=== PATIENT | female | born 1975 | race Caucasian/White ===

== ENCOUNTER 2021-10-31 08:59 | Emergency (ER) | payer SELFPAY ==
[2021-10-31 09:13] VITALS: BP 124/93; PULSE 102; RESP 20; TEMP 36.6; O2SAT 95; BMI 22.8
--- NOTE | 2021-10-31 09:31 | ED_ITS ---
HPI - General Adult General Time Seen by Provider: 09:32 Date Seen: 10/31/21 Chief complaint: Abdominal Pain Stated complaint: lower abdominal pain/back pain Time Seen by Provider: 10/31/21 09:01 Source: patient History of Present Illness HPI narrative: Jay is a 46 year old female presents emerged department with left lower quadrant abdominal pain. Patient states she has had intermittently over the last 3 days, pain originates in her left lower back to her left flank and left groin area, it is pulsating in nature, 5/10. She did have 2 episodes of vomiting last night and associated nausea this morning, she did not eat much. She denies any fevers, chills, myalgias arthralgias. She feels like she has increased urinary frequency, she thought she had some blood in her urine, she denies any burning sensation, she has had urinary tract infections in the past. She also was told that she had some kidney stones. She has not taken anything for the pain. She denies any chest pain or shortness of breath. She had been doing relatively well prior to the last 3 days. Patient states she smokes 1/2 pack per day, usually drinks 3 or 4 whiskey after work daily. No history of any withdrawals in the past. Related Data Previous Rx's Medication Instructions Recorded cefdinir 300 mg capsule 300 mg PO BID 7 days #14 caps 10/31/21 Allergies Allergy/AdvReac Type Severity Reaction Status Date / Time amoxicillin Allergy Verified 10/31/21 11:53 Penicillins Allergy Verified 10/31/21 11:53 Review of Systems Status of ROS: Reports: 10 or more systems reviewed and unremarkable except as noted in History and below [facility] Medical History (Updated 10/31/21 @ 14:24 by Javon Tee MD) No significant past medical history Surgical History (Updated 10/31/21 @ 09:52 by Melony Mcintosh RN) History of cholecystectomy History of shoulder surgery Social History Smoking Status: Current every day smoker What tobacco products do you use: cigarettes Smoking packs per day: 1 Smoking cigarettes per day: 20.0 Years smoked: 20 Smoking pack-years: 20.00 Do you use any of these nicotine containing products: None Second hand tobacco smoke exposure: Yes How often do you have a drink containing alcohol: 4 or more times a week How many standard drinks containing alcohol do you have on a typical day: 3 or 4 How often do you have six or more drinks on one occasion: Monthly AUDIT-C Alcohol total score: 7 Non-prescribed substance use: denies use service: No Exam Narrative: Exam Narrative: General: No obvious distress sitting comfortably HEENT: Pupils equal round reactive to light, extraocular muscles intact Neck: Supple full range of motion. Heart: S1-S2: Normal sinus rhythm Lungs: Mild inspiratory and expiratory wheezes throughout Abdomen: Tender to palpation the left lower quadrant area Muscle skeletal: Left CVA tenderness Neuro; alert awake and oriented x3, gait within normal limits Const: Vital Signs, click to edit/add: Vital Signs - 24 hr 10/31/21 09:13 10/31/21 10:30 10/31/21 11:30 Temperature 97.8 F Pulse Rate [Pulse Oximeter] 102 H 84 78 Respiratory Rate 20 Blood Pressure [Ri ght Upper Arm] 124/93 H 116/86 Pulse Oximetry 95 96 96 Oxygen Delivery Me thod Room Air Room Air Room Air 10/31/21 11:00 10/31/21 14:02 Temperature Pulse Rate [Pulse Oximeter] 82 76 Respiratory Rate 16 Blood Pressure [Ri ght Upper Arm] 121/86 133/91 H Pulse Oximetry 94 98 Oxygen Delivery Me thod Room Air Course Course Hospital Course: 9:15 AM: AIDET performed. vitals show mild tachycardia. Workup will include IV peripheral, 30 mg IV Toradol, for her pain, will obtain urinalysis, urine test, CBC, CRP, CMP and lipase, suspect UTI versus urolithiasis. Differential diagnosis include appendicitis, aortic aneurysm, mesentery ischemia, bowel perforation ectopic volvulus and bowel obstruction. Other considerations are IBD cholecystitis pancreatitis hepatitis gastritis GERD diverticulitis PUD pyelonephritis UTI renal colic stone PID, cervicitis dysfunctional uterine bleeding ovarian cyst torsion. Reevaluation(s) Reevaluation #1: Patient was updated on her imaging and urinalysis results, CBC showed mildly low platelet count of 107, metabolic panel showed potassium 2.7, elevated LFTs, this likely secondary to her alcohol use, lipase 409, urinalysis showed 5-10 white blood cells, greater than 5-10 RBC's, positive nitrates, 3+ leukocyte esterase. CT showed abnormal thickening and enhancement within the distal ureter/bladder at the left UVJ. Primary differential includes a recently passed stone as there is a 5 mm stone within the dependent portion of the contralateral aspect of the bladder. Additional consideration is infection or soft tissue mass. Consider cystoscopy if clinically indicated. No hydronephrosis. Severe hepatic steatosis. No biliary duct dilation. This was read by Dr. Quintin GEORGE. patient is feeling better after above care given, likely repeat potassium obtain EKG and discharge with Omnicef, she was given a dose of 1 g IV Rocephin. Time: 12:39 Reevaluation #2: EKG showed a normal sinus rhythm, BPM 79, no ectopy or acute ST changes. Per ED provider. She was given supplemental potassium and improved to 3.5, magnesium mild low at 1.4, pain has been controlled, plan to discharge treat as an outpatient, she was given Omnicef 300 mg b.i.d. over the next 7 days sent to her pharmacy, written instructions given. She should follow up with her primary care provider over the next 7-10 days, return precautions given. Time: 14:27 Vital Signs Vital signs: Initial Vital Signs Temperature 97.8 F 10/31/21 09:13 Temperature Source Temporal Artery Scan 10/31/21 09:13 Pulse Rate 102 H 10/31/21 09:13 Pulse Rhythm 10/31/21 09:13 Respiratory Rate 20 10/31/21 09:13 Blood Pressure 124/93 H 10/31/21 09:13 Blood Pressure Mean 103 10/31/21 09:13 Blood Pressure Position Supine 10/31/21 09:13 Pulse Oximetry 95 10/31/21 09:13 Oxygen Delivery Method 10/31/21 09:13 Vital Signs Temperature 97.8 F 10/31/21 09:13 Pulse Rate 102 H 10/31/21 09:13 Respiratory Rate 20 10/31/21 09:13 Blood Pressure 124/93 H 10/31/21 09:13 Pulse Oximetry 95 10/31/21 09:13 Oxygen Delivery Method 10/31/21 09:13 Temperature 97.8 F 10/31/21 09:13 Pulse Rate 76 10/31/21 14:02 Respiratory Rate 16 10/31/21 14:02 Blood Pressure 133/91 H 10/31/21 14:02 Pulse Oximetry 98 10/31/21 14:02 Oxygen Delivery Method 10/31/21 14:02 Medical Decision Making Lab Data Labs: Lab Results 10/31/21 10/31/21 10/31/21 Range/Units 09:29 09:29 09:45 WBC 5.63 (4.50-11.00) K/uL RBC 3.49 L (4.00-5.20) m/uL Hgb 14.1 (12.0-16.0) gm/dL Hct 40.1 (33.0-51.0) % MCV 115 H (80-100) fL MCH 40 H (26-34) pg MCHC 35 (32-36) gm/dL RDW Coeff of Nicolas 12.9 (11.5-15.5) % Plt Count 107 L (140-440) K/uL Neut % (Auto) 68.1 (42.0-72.0) % Lymph % (Auto) 21.3 (20-44) % [place] % (Auto) 9.1 (0.0-11.0) % Eos % (Auto) 0.9 (0.0-7.0) % Baso % (Auto) 0.4 (0.0-3.0) % Neut # (Auto) 3.84 (1.7-7.0) K/uL Lymph # (Auto) 1.20 (0.90-2.90) K/uL [place] # (Auto) 0.50 (0.00-0.90) K/UL Eos # (Auto) 0.05 (0.00-0.50) K/uL Baso # (Auto) 0.02 (0.00-0.30) K/uL Abs Immat Gran (auto) 0.01 (0.00-0.30) K/uL Sodium (135-149) mmol/L Potassium (3.6-5.1) mmol/L Chloride (96-114) mmol/L Carbon Dioxide (20-32) mmol/L BUN (5-24) mg/dL Creatinine (0.5-1.5) mg/dL Estimated Creat Clear Estimated GFR ml/min Glucose (60-115) mg/dL Lactate (0.5-1.9) mmol/L Calcium (8.4-10.6) mg/dL Magnesium (1.5-2.6) mg/dL Total Bilirubin (0.1-1.5) mg/dL AST (12-35) U/L ALT (4-35) U/L Alkaline Phosphatase (40-150) U/L C-Reactive Protein (0.5-1.0) mg/dL Total Protein (6.0-8.3) g/dL Albumin (3.3-5.0) g/dL Lipase (23-300) U/L Urine Color Yellow (Yellow) Urine Appearance Cloudy A (Clear) Urine pH 6.5 (5.0-8.5) Ur Specific [place] 1.010 (1.000-1.030) Urine Protein 2+ A (Negative) Urine Glucose (UA) Negative (Negative) Urine Ketones Trace A (Negative) Urine Blood 2+ A (Negative) Urine Nitrite Positive A (Negative) Urine Bilirubin 1+ A (Negative) Urine Urobilinogen 1.0 (0.2-1.0) Ur Leukocyte Esterase 3+ A (Negative) Urine RBC 10-25 A (0-2) Urine WBC 5-10 A (0-5) Ur Squamous Epith Cells Moderate A (None-Few) Urine Bacteria Moderate A (None) Urine HCG, Qual Negative (Negative) 10/31/21 10/31/21 10/31/21 Range/Units 09:45 09:48 11:25 WBC (4.50-11.00) K/uL RBC (4.00-5.20) m/uL Hgb (12.0-16.0) gm/dL Hct (33.0-51.0) % MCV (80-100) fL MCH (26-34) pg MCHC (32-36) gm/dL RDW Coeff of Nicolas (11.5-15.5) % Plt Count (140-440) K/uL Neut % (Auto) (42.0-72.0) % Lymph % (Auto) (20-44) % [place] % (Auto) (0.0-11.0) % Eos % (Auto) (0.0-7.0) % Baso % (Auto) (0.0-3.0) % Neut # (Auto) (1.7-7.0) K/uL Lymph # (Auto) (0.90-2.90) K/uL [place] # (Auto) (0.00-0.90) K/UL Eos # (Auto) (0.00-0.50) K/uL Baso # (Auto) (0.00-0.30) K/uL Abs Immat Gran (auto) (0.00-0.30) K/uL Sodium 135 (135-149) mmol/L Potassium 2.7 L* (3.6-5.1) mmol/L Chloride 96 (96-114) mmol/L Carbon Dioxide 32 (20-32) mmol/L BUN 7 (5-24) mg/dL Creatinine 0.5 (0.5-1.5) mg/dL Estimated Creat Clear 143.33 Estimated GFR 118 ml/min Glucose 132 H (60-115) mg/dL Lactate 1.2 (0.5-1.9) mmol/L Calcium 8.9 (8.4-10.6) mg/dL Magnesium 1.4 L (1.5-2.6) mg/dL Total Bilirubin 2.2 H (0.1-1.5) mg/dL AST 168 H (12-35) U/L ALT 48 H (4-35) U/L Alkaline Phosphatase 169 H (40-150) U/L C-Reactive Protein 0.6 (0.5-1.0) mg/dL Total Protein 6.9 (6.0-8.3) g/dL Albumin 3.6 (3.3-5.0) g/dL Lipase 409 H (23-300) U/L Urine Color (Yellow) Urine Appearance (Clear) Urine pH (5.0-8.5) Ur Specific [place] (1.000-1.030) Urine Protein (Negative) Urine Glucose (UA) (Negative) Urine Ketones (Negative) Urine Blood (Negative) Urine Nitrite (Negative) Urine Bilirubin (Negative) Urine Urobilinogen (0.2-1.0) Ur Leukocyte Esterase (Negative) Urine RBC (0-2) Urine WBC (0-5) Ur Squamous Epith Cells (None-Few) Urine Bacteria (None) Urine HCG, Qual (Negative) 10/31/21 Range/Units 13:30 WBC (4.50-11.00) K/uL RBC (4.00-5.20) m/uL Hgb (12.0-16.0) gm/dL Hct (33.0-51.0) % MCV (80-100) fL MCH (26-34) pg MCHC (32-36) gm/dL RDW Coeff of Nicolas (11.5-15.5) % Plt Count (140-440) K/uL Neut % (Auto) (42.0-72.0) % Lymph % (Auto) (20-44) % [place] % (Auto) (0.0-11.0) % Eos % (Auto) (0.0-7.0) % Baso % (Auto) (0.0-3.0) % Neut # (Auto) (1.7-7.0) K/uL Lymph # (Auto) (0.90-2.90) K/uL [place] # (Auto) (0.00-0.90) K/UL Eos # (Auto) (0.00-0.50) K/uL Baso # (Auto) (0.00-0.30) K/uL Abs Immat Gran (auto) (0.00-0.30) K/uL Sodium (135-149) mmol/L Potassium 3.5 L (3.6-5.1) mmol/L Chloride (96-114) mmol/L Carbon Dioxide (20-32) mmol/L BUN (5-24) mg/dL Creatinine (0.5-1.5) mg/dL Estimated Creat Clear Estimated GFR ml/min Glucose (60-115) mg/dL Lactate (0.5-1.9) mmol/L Calcium (8.4-10.6) mg/dL Magnesium (1.5-2.6) mg/dL Total Bilirubin (0.1-1.5) mg/dL AST (12-35) U/L ALT (4-35) U/L Alkaline Phosphatase (40-150) U/L C-Reactive Protein (0.5-1.0) mg/dL Total Protein (6.0-8.3) g/dL Albumin (3.3-5.0) g/dL Lipase (23-300) U/L Urine Color (Yellow) Urine Appearance (Clear) Urine pH (5.0-8.5) Ur Specific [place] (1.000-1.030) Urine Protein (Negative) Urine Glucose (UA) (Negative) Urine Ketones (Negative) Urine Blood (Negative) Urine Nitrite (Negative) Urine Bilirubin (Negative) Urine Urobilinogen (0.2-1.0) Ur Leukocyte Esterase (Negative) Urine RBC (0-2) Urine WBC (0-5) Ur Squamous Epith Cells (None-Few) Urine Bacteria (None) Urine HCG, Qual (Negative) Discharge Plan Discharge Clinical Impression: Alcohol use, Hepatic steatosis, Urolithiasis, Hypokalemia Patient Disposition: Home, Self-Care Condition: Improved Instructions: Renal Colic (ED), Potassium Content of Foods List (ED), Hypokalemia (ED) Activity Level: Activity as Tolerated Prescriptions: New cefdinir 300 mg capsule 300 mg PO BID 7 Days Qty: 14 0RF Follow Up/Referrals: Branden Michaud PA-C [Primary Care Provider] - Stand Alone Forms: [email or web address] Info Instructions
[2021-10-31 09:42] LABS: Appearance Urine Cloudy (Clear); Bilirubin Urine 1+ (Negative); Blood Urine 2+ (Negative); Color Urine Yellow (Yellow); Glucose Urine Negative (Negative); Ketones Urine Trace (Negative); Leukocyte Esterase Urine 3+ (Negative); Nitrite Urine Positive (Negative); Protein Urine 2+ (Negative); pH Urine 6.5 (5.0-8.5)
[2021-10-31] MEDS: 0.9 % SODIUM CHLORIDE 1000 ml 1,000 ML IV (09:49)
[2021-10-31] MEDS: KETOROLAC 30 MG/ML inj IVP (09:49)
[2021-10-31 09:57] LABS: Basophils Absolute Auto 0.02 K/uL (0.00-0.30); Basophils Percent Auto 0.4 % (0.0-3.0); Eosinophils Absolute Auto 0.05 K/uL (0.00-0.50); Eosinophils Percent Auto 0.9 % (0.0-7.0); Hematocrit 40.1 % (33.0-51.0); Hemoglobin* 14.1 gm/dL (12.0-16.0); Immature Granulocytes Abs Auto 0.01 K/uL (0.00-0.30); Lymphocytes Percent Auto 21.3 % (20-44); Mean Corpuscular HGB Conc 35 gm/dL (32-36); Mean Corpuscular Hemoglobin 40 pg (26-34); Mean Corpuscular Volume 115 fL (80-100); Monocytes Percent Auto 9.1 % (0.0-11.0); Neutrophils Absolute Auto 3.84 K/uL (1.7-7.0); Neutrophils Percent Auto 68.1 % (42.0-72.0); Platelet Count* 107 K/uL (140-440); RDW Coefficient of Variation % 12.9 % (11.5-15.5); Red Blood Count 3.49 m/uL (4.00-5.20); White Blood Count* 5.63 K/uL (4.50-11.00)
[2021-10-31 09:59] LABS: Slide Review Reflex No
[2021-10-31 10:02] LABS: Bacteria Urine Moderate; Squamous Epithelial Cell Urine Moderate (None-Few)
[2021-10-31] MEDS: HYDROmorphone 0.5 mg/0.5 ml inj IVP (10:11)
[2021-10-31 10:14] LABS: Albumin* 3.6 g/dL (3.3-5.0); Chloride* 96 mmol/L (96-114)
[2021-10-31 10:15] LABS: Sodium* 135 mmol/L (135-149)
[2021-10-31 10:17] LABS: Bilirubin Total* 2.2 mg/dL (0.1-1.5); Creatinine* 0.5 mg/dL (0.5-1.5); Est. Creatinine Clearance* 143.33; Estimated Glomerular Filt Rate 118 ml/min
[2021-10-31 10:18] LABS: Alanine Aminotransferase* 48 U/L (4-35); Alkaline Phosphatase* 169 U/L (40-150); Aspartate Amino Transferase* 168 U/L (12-35); Blood Urea Nitrogen* 7 mg/dL (5-24); Calcium* 8.9 mg/dL (8.4-10.6); Carbon Dioxide* 32 mmol/L (20-32); Glucose* 132 mg/dL (60-115); Lipase* 409 U/L (23-300); Total Protein* 6.9 g/dL (6.0-8.3)
[2021-10-31 10:19] LABS: Ur HCG Qualitative* Negative (Negative)
[2021-10-31 10:21] LABS: C Reactive Protein* 0.6 mg/dL (0.5-1.0)
[2021-10-31 10:30] VITALS: BP 116/86; PULSE 84; O2SAT 96
[2021-10-31 10:32] LABS: Potassium* 2.7 mmol/L (3.6-5.1)
--- NOTE | 2021-10-31 10:54 | CRLHL7_ITS ---
For Patients: As a result of the Century Cures Act, medical imaging exams and procedure reports are released immediately into your electronic medical record. You may view this report before your referring provider. If you have questions, please contact your health care provider. INDICATION: LEFT FLANK PAIN, PYELONEPHRITIS VS OBSTRUCTING STONE. ABNORMAL LFT, BILI TECHNIQUE: CT abdomen and pelvis with 74CC ISOVUE-370 IV contrast. COMPARISON: None. FINDINGS: The liver is normal in size. Hepatic parenchyma attenuation is severely decreased. Gallbladder surgically absent. No biliary duct dilation. The portal vein pain. The spleen, adrenal glands and pancreas are within normal limits. The kidneys enhance symmetrically and modestly. There is a right-sided renal cyst measuring 1.4 cm additional subcentimeter hypodensities are too small characterize. No hydronephrosis. No evidence of nephrolithiasis. Abnormal thickening and enhancement within the distal ureter/bladder at the left ureterovesicular junction (series 2, image 133 measuring 1.1 x 2.8 by 0.8 cm). Within the dependent portion of the bladder on the right there is a 5 mm stone. Mild bladder wall thickening which may relate to degree of decompression. No bowel obstruction. Unremarkable appendix. No significant free fluid and no free air. Pelvic organs are unremarkable. Linear atelectasis of the left lung base. IMPRESSION: 1. Abnormal thickening and enhancement within the distal ureter/bladder at the left ureterovesicular junction. Primary differential includes a recently passed stone as there is a 5 mm stone within the dependent portion of the contralateral aspect of the bladder. Additional consideration is infection or soft tissue mass. Consider cystoscopy if clinically indicated. No hydroureteronephrosis. 2. Severe hepatic steatosis. No biliary duct dilation. Please note that all CT scans at this facility use dose modulation, iterative reconstruction, and/or weight-based dosing when appropriate to reduce radiation dose to as low as reasonably achievable. Dictated by Baljinder Ribeiro MD @ 10/31/2021 12:19:41 PM (Electronically Signed)
[2021-10-31 11:00] VITALS: BP 121/86; PULSE 82; O2SAT 94
[2021-10-31] MEDS: POTASSIUM CHLORIDE 10 MEQ CAPSULE ER 40 MEQ PO (11:08)
[2021-10-31 11:30] VITALS: PULSE 78; O2SAT 96
[2021-10-31 11:48] LABS: Lactate* 1.2 mmol/L (0.5-1.9)
[2021-10-31] MEDS: cefTRIAXone 1 GM in 0.9 % SODIUM CHLORIDE Mini-bag 100 ML IVPB (11:58)
[2021-10-31 13:55] LABS: Potassium* 3.5 mmol/L (3.6-5.1)
[2021-10-31 14:02] VITALS: BP 133/91; PULSE 76; RESP 16; O2SAT 98
[2021-10-31 15:19] LABS: Magnesium* 1.4 mg/dL (1.5-2.6)
== END 2021-10-31 14:34 | disposition home or self-care (01) ==
PROVIDERS: Emergency Provider Student in an Organized Health Care Education/Training Program; PCP Physician Assistant Medical
DX: F10.10 Alcohol abuse, uncomplicated (principal); K76.0 Fatty (change of) liver, not elsewhere classified; N20.9 Urinary calculus, unspecified; E87.6 Hypokalemia
CPT/HCPCS: 36415; 74177; 80053; 81003; 81015; 81025; 83605; 83690; 83735; 84132; 85025; 86140; 87040; 87086; 87186; 93005; 96365; 96375; 99283; 99284; 99285; A9270; J0696; J1170; J1885; J7030; Q9967

== ENCOUNTER 2022-02-28 12:42 | Emergency (ER) | payer SELFPAY ==
[2022-02-28] VITALS (10 sets, daily range): BP systolic 117–136; BP diastolic 85–98; PULSE 77–117; RESP 16–23; TEMP 36.7; O2SAT 89–98; BMI 21.3
[2022-02-28 14:36] LABS: Appearance Urine Slightly Cloudy (Clear); Bilirubin Urine 1+ (Negative); Blood Urine Negative (Negative); Color Urine Orange (Yellow); Glucose Urine Negative (Negative); Ketones Urine Negative (Negative); Leukocyte Esterase Urine Negative (Negative); Nitrite Urine Negative (Negative); Protein Urine Trace (Negative)
--- NOTE | 2022-02-28 14:49 | CRLHL7_ITS ---
For Patients: As a result of the Century Cures Act, medical imaging exams and procedure reports are released immediately into your electronic medical record. You may view this report before your referring provider. If you have questions, please contact your health care provider. INDICATION: Abdominal and left flank pain. TECHNIQUE: CT abdomen and pelvis without contrast. COMPARISON: October 31, 2021. FINDINGS: Lower chest: Scattered dependent atelectasis. Liver: Hepatic steatosis. Gallbladder and bile ducts: Cholecystectomy. Pancreas: Unremarkable. No mass or inflammation. Spleen: Normal in size. No masses. Adrenal glands: Normal in size. No nodules. Kidneys: Normal in size. No suspicious masses, stones, or hydronephrosis. Right simple renal cyst. GI tract: Unremarkable. Normal in caliber. No sign of mass or inflammation. Normal appendix. Vasculature: Abdominal aorta is normal in caliber. Lymph nodes: No lymphadenopathy. Peritoneum/Abdominal Wall: Unremarkable. No sign of mass or infiltration. No free air or significant free fluid. Pelvis: Intrauterine device. Bones: Unremarkable for age. IMPRESSION: No acute intra-abdominal/pelvic abnormality, including obstructive uropathy has question. Hepatic steatosis. Please note that all CT scans at this facility use dose modulation, iterative reconstruction, and/or weight-based dosing when appropriate to reduce radiation dose to as low as reasonably achievable. Dictated by Javon Segundo MD @ 02/28/2022 3:59:25 PM (Electronically Signed)
--- NOTE | 2022-02-28 14:50 | ED.GENADULT ---
HPI - General Adult General Chief complaint: Flank Pain Stated complaint: Back pain, suspected kidney stone Time Seen by Provider: 02/28/22 14:33 History of Present Illness HPI narrative: This 46-year-old female comes in reporting left flank pain radiating into her left abdomen. This pain began yesterday. She states that she does have a history of kidney stone and this seems similar but worse. She has some nausea. She does report some discolored urine. She has not had any fevers. Related Data Previous Rx's Medication Instructions Recorded cefdinir 300 mg capsule 300 mg PO BID 7 days #14 caps 10/31/21 ketorolac 10 mg tablet 10 mg PO Q8H 5 days #15 tabs 02/28/22 Allergies Allergy/AdvReac Type Severity Reaction Status Date / Time amoxicillin Allergy Verified 02/28/22 13:21 Penicillins Allergy Verified 02/28/22 13:21 Review of Systems Status of ROS: Reports: 10 or more systems reviewed and unremarkable except as noted in History and below Narrative: Constitutional: No fevers, no weight gain or loss. Eyes: No discharge. No vision changes. HENT: No congestion, no sore throat, no ear pain. Cardiovascular: No chest pain, no palpitations. Respiratory: No shortness of breath, no wheezes, no cough. Gastrointestinal: No diarrhea. Left flank pain extending into the left abdomen. Genitourinary: No dysuria. She may have had some hematuria. Musculoskeletal: Normal range of motion. Skin: No rashes, no pruritis. Neurological: No dizziness, weakness, sensory change, speech change. Endo/Heme/Allergies: No bruising or bleeding. No polydipsia. Pysch: no suicidality, no anxiety, no insomnia. All other systems reviewed and are negative. [facility] Medical History (Updated 02/28/22 @ 16:17 by Mark Felder MD) No significant past medical history Surgical History (Updated 10/31/21 @ 09:52 by Melony Mcintosh RN) History of cholecystectomy History of shoulder surgery Social History Smoking Status: Current every day smoker What tobacco products do you use: cigarettes Smoking packs per day: 1 Smoking cigarettes per day: 20.0 Years smoked: 20 Smoking pack-years: 20.00 Do you use any of these nicotine containing products: None Second hand tobacco smoke exposure: Yes How often do you have a drink containing alcohol: 4 or more times a week How many standard drinks containing alcohol do you have on a typical day: 3 or 4 How often do you have six or more drinks on one occasion: Monthly AUDIT-C Alcohol total score: 7 Non-prescribed substance use: denies use service: No Exam Narrative: Exam Narrative: Constitutional: Well-developed, well-nourished, no acute distress. HEENT: Normocephalic, atraumatic. Neck: Normal range of motion. Nontender. Supple. Heart: Regular. No murmurs. Normal rate. Intact distal pulses. Lungs: Clear to auscultation. No chest discomfort. No wheezes, rhonchi, or rales. Abdomen: Normal bowel sounds. Left flank pain and left abdominal pain. Genitalia: Deferred. Back: No midline tenderness. Normal range of motion. Extremities: Normal range of motion. No injury. Skin: Intact. No rash. Warm. No erythema or pallor. Neurologic: No altered sensation. No weakness. Alert and oriented. Psychiatric: No suicidality. No anxiety or depression. No insomnia. Nursing notes and vitals signs are reviewed. Const: Vital Signs, click to edit/add: Vital Signs - 24 hr 02/28/22 13:02 02/28/22 15:22 02/28/22 15:23 Temperature 98.0 F Pulse Rate 80 81 Pulse Rate [Pulse Oximeter] 117 H Respiratory Rate 23 16 Blood Pressure 136/98 H Blood Pressure [Ri ght Upper Arm] 128/85 Pulse Oximetry 98 98 98 Oxygen Delivery Me thod Room Air Course Vital Signs Vital signs: Initial Vital Signs Temperature 98.0 F 02/28/22 13:02 Temperature Source Temporal Artery Scan 02/28/22 13:02 Pulse Rate 117 H 02/28/22 13:02 Pulse Rhythm 02/28/22 13:02 Pulse Strength 3+ Normal 02/28/22 13:02 Respiratory Rate 23 02/28/22 13:02 Blood Pressure 128/85 02/28/22 13:02 Blood Pressure Mean 99 02/28/22 13:02 Pulse Oximetry 98 02/28/22 13:02 Oxygen Delivery Method 02/28/22 13:02 Vital Signs Temperature 98.0 F 02/28/22 13:02 Pulse Rate 117 H 02/28/22 13:02 Respiratory Rate 23 02/28/22 13:02 Blood Pressure 128/85 02/28/22 13:02 Pulse Oximetry 98 02/28/22 13:02 Oxygen Delivery Method 02/28/22 13:02 Temperature 98.0 F 02/28/22 13:02 Pulse Rate 81 02/28/22 15:23 Respiratory Rate 16 02/28/22 15:23 Blood Pressure 136/98 H 02/28/22 15:23 Pulse Oximetry 98 02/28/22 15:23 Oxygen Delivery Method 02/28/22 13:02 Medical Decision Making MDM Narrative Medical decision making narrative: This patient comes in with left flank pain and abdominal pain and wonders if she was having a kidney stone again. An IV was established where she received Dilaudid, Toradol, and Zofran. This brought relief to her symptoms. CT imaging of the abdomen and pelvis shows no sign of obstructive disease of the urinary tract. There are no other significant findings also to explain her pain. The patient states that her symptoms are resolved except if she moves. She does report that movement makes her pain worse and this is more suggestive then of some musculoskeletal or nerve mediated pain. At the time of discharge the patient appears safe for outpatient management. The treatment plan is reviewed along with written and verbal return precautions. Reasons to return and the importance of close followup were also reviewed. Lab Data Labs: Lab Results 02/28/22 Range/Units 14:31 Urine Color [place] A (Yellow) Urine Appearance Slightly Cloudy A (Clear) Urine pH 7.0 (5.0-8.5) Ur Specific [place] 1.020 (1.000-1.030) Urine Protein Trace A (Negative) Urine Glucose (UA) Negative (Negative) Urine Ketones Negative (Negative) Urine Blood Negative (Negative) Urine Nitrite Negative (Negative) Urine Bilirubin 1+ A (Negative) Urine Urobilinogen 1.0 (0.2-1.0) Ur Leukocyte Esterase Negative (Negative) Urine RBC 0-2 (0-2) Urine WBC 2-5 (0-5) Ur Squamous Epith Cells Few (None-Few) Urine Bacteria None (None) Imaging Data CT scan - abdomen: Radiologist's impression: No acute intra-abdominal/pelvic abnormality, including obstructive uropathy. Hepatic steatosis. Discharge Plan Discharge Clinical Impression: Acute flank pain Patient Disposition: Home, Self-Care Condition: Improved Additional Instructions: Take medication as needed and indicated. Increase activity as tolerated. Follow up with MD or return if worsening. Prescriptions: New ketorolac 10 mg tablet 10 mg PO Q8H 5 Days Qty: 15 0RF No Action cefdinir 300 mg capsule 300 mg PO BID 7 Days Qty: 14 0RF Follow Up/Referrals: Branden Michaud PA-C [Primary Care Provider] - Stand Alone Forms: [employer] Info Instructions
[2022-02-28 14:51] LABS: RBC Urine 0-2 (0-2); Squamous Epithelial Cell Urine Few (None-Few)
[2022-02-28] MEDS: KETOROLAC 30 MG/ML inj IVP (15:17)
[2022-02-28] MEDS: HYDROmorphone 0.5 mg/0.5 ml inj IVP (15:17)
[2022-02-28] MEDS: ONDANSETRON 2 MG/ML inj 4 MG IVP (15:17)
== END 2022-02-28 16:42 | disposition home or self-care (01) ==
PROVIDERS: Emergency Provider Emergency Medicine Emergency Medical Services; PCP Physician Assistant Medical
DX: R10.9 Unspecified abdominal pain (principal)
CPT/HCPCS: 74176; 81003; 81015; 96374; 96375; 99283; 99284; J1170; J1885; J2405

== ENCOUNTER 2023-04-11 14:40 | Emergency (ER) | payer MEDICAID, SELFPAY ==
[2023-04-11 14:52] VITALS: BP 148/94; PULSE 99; RESP 16; TEMP 36.3; O2SAT 99; BMI 26.6
[2023-04-11 15:05] LABS: Appearance Urine Cloudy (Clear); Bilirubin Urine 2+ (Negative); Blood Urine Negative (Negative); Color Urine Yellow (Yellow); Glucose Urine Negative (Negative); Ketones Urine 2+ (Negative); Leukocyte Esterase Urine 1+ (Negative); Nitrite Urine Negative (Negative); Protein Urine Trace (Negative); Specific Gravity Urine >= 1.030 (1.000-1.030)
--- NOTE | 2023-04-11 15:42 | CT_ITS ---
Patient: RAHEL MORGAN Facility:?[facility] Patient ID:?[id number] Site Patient ID:?[id number]. Site :?[id number] Study:?CT-Abdomen/Pelvis WO-04/11/2023 4:28:43 PM Ordering Physician:MICHELLE Final Report: INDICATION: L FLANK PAIN. TECHNIQUE: CT abdomen and pelvis without contrast. COMPARISON: Feb 28, 2022. FINDINGS: Limited evaluation of the intra-abdominal solid organs without IV contrast. Lower chest: Mild scarring in the right lower lobe. Liver: Normal in size and attenuation. Significantly improved steatosis. no suspicious masses. Gallbladder and bile ducts: Gallbladder is absent. No intra or extrahepatic biliary ductal dilatation. Pancreas: Unremarkable. No mass or inflammation. Spleen: Normal in size. No masses. Adrenal glands: Normal in size. No nodules. Kidneys: Normal in size. No suspicious masses, stones, or hydronephrosis. GI tract: Unremarkable. Normal in caliber. No sign of mass or inflammation. Normal appendix. Vasculature: Abdominal aorta is normal in caliber. Lymph nodes: No lymphadenopathy. Peritoneum/Abdominal Wall: Unremarkable. No sign of mass or infiltration. No free air or significant free fluid. Pelvis: Appropriately positioned IUD in the uterus. No pelvic masses. Bones: Unremarkable for age. IMPRESSION: 1. No acute intra-abdominal process identified. No renal or ureteral stones. No hydronephrosis or hydroureter. 2. Improved steatosis. Please note that all CT scans at this facility use dose modulation, iterative reconstruction, and/or weight-based dosing when appropriate to reduce radiation dose to as low as reasonably achievable. Dictated by Zeyad Ba MD @ 04/11/2023 4:55:19 PM Signed by:?Zeyad Ba MD @04/11/2023 4:55:19 PM (Electronic Signature)
[2023-04-11] MEDS: MORPHINE 4 MG/ML INJ IVP (16:02)
[2023-04-11] MEDS: KETOROLAC 15 MG/ML inj IVP (16:04)
[2023-04-11 16:13] LABS: Basophils Absolute Auto 0.02 K/uL (0.00-0.30); Basophils Percent Auto 0.3 % (0.0-3.0); Eosinophils Absolute Auto 0.02 K/uL (0.00-0.50); Eosinophils Percent Auto 0.3 % (0.0-7.0); Hematocrit 53.6 % (33.0-51.0); Hemoglobin* 18.2 gm/dL (12.0-16.0); Immature Granulocytes Abs Auto 0.01 K/uL (0.00-0.30); Immature Granulocytes Pct Auto 0.2 %; Lymphocytes Absolute Auto 1.51 K/uL (0.90-2.90); Lymphocytes Percent Auto 23.9 % (20-44); Mean Corpuscular HGB Conc 34 gm/dL (32-36); Mean Corpuscular Hemoglobin 36 pg (26-34); Mean Corpuscular Volume 105 fL (80-100); Monocytes Percent Auto 6.6 % (0.0-11.0); Neutrophils Absolute Auto 4.34 K/uL (1.7-7.0); Neutrophils Percent Auto 68.7 % (42.0-72.0); Platelet Count* 139 K/uL (140-440); RDW Coefficient of Variation % 15.3 % (11.5-15.5); Red Blood Count 5.11 m/uL (4.00-5.20); Slide Review Reflex No; White Blood Count* 6.32 K/uL (4.50-11.00)
[2023-04-11] MEDS: 0.9 % SODIUM CHLORIDE 1000 ml 1,000 ML IV (16:20)
[2023-04-11 16:26] LABS: Chloride* 99 mmol/L (96-114); Potassium* 4.1 mmol/L (3.6-5.1); Sodium* 132 mmol/L (135-149)
[2023-04-11 16:29] LABS: Anion Gap 13 mEq/L (7-15); Blood Urea Nitrogen* 14 mg/dL (5-24); Carbon Dioxide* 20 mmol/L (20-32); Creatinine* 0.7 mg/dL (0.5-1.5); Est. Creatinine Clearance* 104.95; Estimated Glomerular Filt Rate 108 ml/min
[2023-04-11 16:30] LABS: Calcium* 9.7 mg/dL (8.4-10.6); Glucose* 88 mg/dL (60-115)
--- NOTE | 2023-04-11 17:40 | ED.GENADULT ---
HPI - General Adult General Date Seen: 04/11/23 Chief complaint: Flank Pain Stated complaint: Lower back pain-reminds her of past kidney stone Time Seen by Provider: 04/11/23 15:36 Source: patient Mode of arrival: ambulatory Limitations: no limitations History of Present Illness HPI narrative: Patient is a 47-year-old female presenting to the emergency department for left flank pain. States this is is a sharp pain that radiates across her back. It is worse in the left low back though. She states last time she had pain like this was 1 year ago with a kidney stone. Says the pain was started dull but 3 days ago but got acutely worse today. Has taken Advil for pain with minimal improvement in her symptoms. Denies fevers, chills, dysuria, abdominal pain, headache, vision changes, chest pain, shortness of breath, weakness, diarrhea. Does not remember injuring her back or any recent heavy lifting. Has no other medical problems is not currently taking medications. Denies saddle anesthesia, IV drug use, loss of bowel or bladder control or urinary retention. No other concerns noted. Related Data Home Medications Medication Instructions Recorded Confirmed No Known Home Medications 04/24/22 04/24/22 Allergies Allergy/AdvReac Type Severity Reaction Status Date / Time amoxicillin Allergy Verified 04/11/23 14:54 Penicillins Allergy Verified 04/11/23 14:54 Review of Systems Status of ROS: Reports: 10 or more systems reviewed and unremarkable except as noted in History and below [facility] Medical History (Updated 04/11/23 @ 17:59 by Eloy Kruger DO) No significant past medical history Surgical History (Updated 10/31/21 @ 09:52 by Melony Mcintosh RN) History of shoulder surgery ?Z98.890 - Other specified postprocedural states (ICD-10) History of cholecystectomy ?Z90.49 - Acquired absence of other specified parts of digestive tract (ICD-10) Social History Smoking Status: Current every day smoker What tobacco products do you use: cigarettes Smoking packs per day: 1 Smoking cigarettes per day: 20.0 Years smoked: 20 Smoking pack-years: 20.00 Do you use any of these nicotine containing products: None Second hand tobacco smoke exposure: Yes How often do you have a drink containing alcohol: 4 or more times a week How many standard drinks containing alcohol do you have on a typical day: 3 or 4 How often do you have six or more drinks on one occasion: Monthly AUDIT-C Alcohol total score: 7 Non-prescribed substance use: denies use service: No Exam Narrative: Exam Narrative: Const: Well-nourished, Well-developed, in moderate distress Eyes: PERRL, no conjunctival injection, and symmetrical lids HENT: Atraumatic external nose and ears. Moist mucous membranes. Neck: Symmetric, trachea midline, No thyromegaly. CVS: RRR, No murmurs or gallops. Peripheral pulses 2+ and equal in all extremities RESP: Unlabored respiratory effort. Clear to auscultation bilaterally. GI: Nontender/Nondistended, No rebound or guarding. MSK:Extremities w/o deformity, Normal Active ROM, left low back tenderness, no midline tenderness Skin: Warm, Dry. No rashes or lesions. Neuro: Normal Muscle tone, No focal neurological deficits. Psych: Awake, Alert, & Oriented x3. Appropriate mood and affect. Const: Vital Signs, click to edit/add: Vital Signs - 24 hr 04/11/23 14:52 Temperature 97.4 F L Pulse Rate [Right Pulse Oximeter] 99 Respiratory Rate 16 Blood Pressure [Ri ght Upper Arm] 148/94 H Pulse Oximetry 99 Oxygen Delivery Me thod Room Air Course Vital Signs Vital signs: Initial Vital Signs Temperature 97.4 F L 04/11/23 14:52 Temperature Source Temporal Artery Scan 04/11/23 14:52 Pulse Rate 99 04/11/23 14:52 Pulse Rhythm Regular 04/11/23 14:52 Pulse Strength 3+ Normal 04/11/23 14:52 Respiratory Rate 16 04/11/23 14:52 Blood Pressure 148/94 H 04/11/23 14:52 Blood Pressure Mean 112 H 04/11/23 14:52 Blood Pressure Position Sitting 04/11/23 14:52 Pulse Oximetry 99 04/11/23 14:52 Oxygen Delivery Method Room Air 04/11/23 14:52 Vital Signs Temperature 97.4 F L 04/11/23 14:52 Pulse Rate 99 04/11/23 14:52 Respiratory Rate 16 04/11/23 14:52 Blood Pressure 148/94 H 04/11/23 14:52 Pulse Oximetry 99 04/11/23 14:52 Oxygen Delivery Method Room Air 04/11/23 14:52 Temperature 97.4 F L 04/11/23 14:52 Pulse Rate 99 04/11/23 14:52 Respiratory Rate 16 04/11/23 14:52 Blood Pressure 148/94 H 04/11/23 14:52 Pulse Oximetry 99 04/11/23 14:52 Oxygen Delivery Method Room Air 04/11/23 14:52 Medications Administered Medications: Discontinued Medications Generic Name Dose Route Start Last Admin Trade Name Adriana PRN Reason Stop Dose Admin Sodium Chloride 1,000 mls @ 1,000 mls/hr 04/11/23 16:45 04/11/23 16:20 0.9 % Sodium Chloride 1000 Ml IV 04/11/23 17:44 1,000 mls/hr .Q1H DAGOBERTO Administration Ketorolac Tromethamine 15 mg 04/11/23 15:44 04/11/23 16:04 Ketorolac 15 Mg/Ml Inj IVP 04/11/23 15:45 15 mg ONCE ONE Administration Morphine Sulfate 4 mg 04/11/23 15:44 04/11/23 16:02 Morphine 4 Mg/Ml Inj IVP 04/11/23 15:45 4 mg ONCE ONE Administration Medical Decision Making MDM Narrative Medical decision making narrative: Patient is a 47-year-old female presenting to emergency department for left lower back pain. Symptoms started gradually but seemed to get worse today. Does not remember any injuries. Is concerned she has a kidney stone. We will do urinalysis, CBC, BMP. Patient was given Toradol and oxycodone for pain. Was also given a L of normal saline. She is having no red flag symptoms for cauda equina. CT scan of the abdomen pelvis was ordered. CT scan shows no signs of a stone or any other concerning intra-abdominal issues. Her pain is getting better and is tolerable at this time. She looks much more comfortable. Her hemoglobin is 18.2 which is slightly high but do not think this is was causing her symptoms. Seems most likely to to be a back strain. BMP showed no concerning findings. Urinalysis shows no signs of UTI. She is otherwise doing well and will be discharged home with oxycodone through [facility]. Lab Data Labs: Lab Results 04/11/23 04/11/23 Range/Units 14:52 16:00 WBC 6.32 (4.50-11.00) K/uL RBC 5.11 (4.00-5.20) m/uL Hgb 18.2 H (12.0-16.0) gm/dL Hct 53.6 H (33.0-51.0) % MCV 105 H (80-100) fL MCH 36 H (26-34) pg MCHC 34 (32-36) gm/dL RDW Coeff of Nicolas 15.3 (11.5-15.5) % Plt Count 139 L (140-440) K/uL Neut % (Auto) 68.7 (42.0-72.0) % Lymph % (Auto) 23.9 (20-44) % [place] % (Auto) 6.6 (0.0-11.0) % Eos % (Auto) 0.3 (0.0-7.0) % Baso % (Auto) 0.3 (0.0-3.0) % Neut # (Auto) 4.34 (1.7-7.0) K/uL Lymph # (Auto) 1.51 (0.90-2.90) K/uL [place] # (Auto) 0.40 (0.00-0.90) K/UL Eos # (Auto) 0.02 (0.00-0.50) K/uL Baso # (Auto) 0.02 (0.00-0.30) K/uL Abs Immat Gran (auto) 0.01 (0.00-0.30) K/uL Imm/Tot Granulo (auto) 0.2 % Sodium 132 L (135-149) mmol/L Potassium 4.1 (3.6-5.1) mmol/L Chloride 99 (96-114) mmol/L Carbon Dioxide 20 (20-32) mmol/L Anion Gap 13 (7-15) mEq/L BUN 14 (5-24) mg/dL Creatinine 0.7 (0.5-1.5) mg/dL Estimated Creat Clear 104.95 Estimated GFR 108 ml/min Glucose 88 (60-115) mg/dL Calcium 9.7 (8.4-10.6) mg/dL Urine Color Yellow (Yellow) Urine Appearance Cloudy A (Clear) Urine pH 6.0 (5.0-8.5) Ur Specific [place] >= 1.030 (1.000-1.030) Urine Protein Trace A (Negative) Urine Glucose (UA) Negative (Negative) Urine Ketones 2+ A (Negative) Urine Blood Negative (Negative) Urine Nitrite Negative (Negative) Urine Bilirubin 2+ A (Negative) Urine Urobilinogen 1.0 (0.2-1.0) Ur Leukocyte Esterase 1+ A (Negative) Urine RBC (0-2) Urine WBC (0-5) Ur Squamous Epith Cells (None-Few) Urine Bacteria (None) Imaging Data CT scan abdomen and pelvis: Radiologist's impression: 1. No acute intra-abdominal process identified. No renal or ureteral stones. No hydronephrosis or hydroureter. 2. Improved steatosis. Please note that all CT scans at this facility use dose modulation, iterative reconstruction, and/or weight-based dosing when appropriate to reduce radiation dose to as low as reasonably achievable. Dictated by Zeyad Ba MD @ 04/11/2023 4:55:19 PM Discharge Plan Discharge Clinical Impression: Lumbar strain Qualifiers: Encounter type: initial encounter Qualified Code(s): S39.012A - Strain of muscle, fascia and tendon of lower back, initial encounter Patient Disposition: Home, Self-Care Condition: Improved Instructions: Back Pain (ED) Additional Instructions: There is no signs of a kidney stone. I believe pain at this time is secondary to a back injury. Take Tylenol and ibuprofen for pain and if that is not helping try the oxycodone. Follow-up with primary care provider next week if symptoms persist for follow-up. Prescriptions: No Action No Known Home Medications Follow Up/Referrals: Branden Michaud PA-C [Primary Care Provider] - Stand Alone Forms: [employer] Info Instructions
== END 2023-04-11 18:13 | disposition home or self-care (01) ==
PROVIDERS: Emergency Provider Student in an Organized Health Care Education/Training Program; PCP Physician Assistant Medical
DX: S39.012A Strain of muscle, fascia and tendon of lower back, initial encounter (principal)
CPT/HCPCS: 36415; 74176; 80048; 81001; 85025; 87086; 96374; 96375; 99283; 99284; J1885; J2270; J7030

== ENCOUNTER 2025-01-04 10:46 | Emergency (ER) | payer MEDICAID, SELFPAY ==
[2025-01-04 10:57] VITALS: BP 107/72; PULSE 91; RESP 16; TEMP 36; O2SAT 99; BMI 28.8
--- NOTE | 2025-01-04 11:51 | ED_ITS ---
HPI - General Adult General Chief complaint: Unspecified Complaint, Adult Stated complaint: L leg numbness Time Seen by Provider: 01/04/25 11:09 History of Present Illness HPI narrative: This 49-year-old female comes in reporting tingling sensation in her left upper lateral and anterior thigh. She also feels a bit of that also in the medial thigh. She does not report any back pain. She does not have any injury event or other change except she reports that she has a puppy that is 40 lb that sleeps on her at night. She does not have any weakness or sign symptoms extending to her knee or below her knee. Related Data Home Medications ?Medication ?Instructions ?Recorded ?Confirmed Mirena 01/04/25 tirzepatide 01/04/25 Allergies Allergy/AdvReac Type Severity Reaction Status Date / Time amoxicillin Allergy Verified 04/11/23 14:54 Penicillins Allergy Verified 04/11/23 14:54 Review of Systems Status of ROS: Reports: 10 or more systems reviewed and unremarkable except as noted in History and below Narrative: Constitutional: No fevers, no weight gain or loss. Eyes: No discharge. No vision changes. HENT: No congestion, no sore throat, no ear pain. Cardiovascular: No chest pain, no palpitations. Respiratory: No shortness of breath, no wheezes, no cough. Gastrointestinal: No abdominal pain, no vomiting, no diarrhea. Genitourinary: No dysuria, no hematuria. Musculoskeletal: Normal range of motion. Skin: No rashes, no pruritis. Neurological: No dizziness, weakness, speech change. Sensory change in the left anterior and lateral thigh as described above. Endo/Heme/Allergies: No bruising or bleeding. No polydipsia. Pysch: no suicidality, no anxiety, no insomnia. All other systems reviewed and are negative. [facility] Medical History (Updated 01/04/25 @ 11:57 by Mark Felder MD) No significant past medical history Surgical History (Updated 10/31/21 @ 09:52 by Melony Mcintosh RN) History of shoulder surgery ?Z98.890 - Other specified postprocedural states (ICD-10) History of cholecystectomy ?Z90.49 - Acquired absence of other specified parts of digestive tract (ICD- 10) Social History Smoking Status: Current every day smoker What tobacco products do you use: cigarettes Smoking packs per day: 1 Smoking cigarettes per day: 20.0 Years smoked: 20 Smoking pack-years: 20.00 Do you use any of these nicotine containing products: None Second hand tobacco smoke exposure: Yes How often do you have a drink containing alcohol: 4 or more times a week How many standard drinks containing alcohol do you have on a typical day: 3 or 4 How often do you have six or more drinks on one occasion: Monthly AUDIT-C Alcohol total score: 7 Non-prescribed substance use: denies use service: No Exam Narrative: Exam Narrative: Constitutional: Well-developed, well-nourished, no acute distress. HEENT: Normocephalic, atraumatic. Neck: Normal range of motion. Nontender. Supple. Heart: Regular. No murmurs. Normal rate. Intact distal pulses. Lungs: Clear to auscultation. No chest discomfort. No wheezes, rhonchi, or rales. Abdomen: Normal bowel sounds. Nontender. No rebound tenderness. Genitalia: Deferred. Back: No midline tenderness. Normal range of motion. Extremities: Normal range of motion. No injury. Skin: Intact. No rash. Warm. No erythema or pallor. Neurologic: No weakness. Alert and oriented. Straight leg raise is negative bilaterally. Psychiatric: No suicidality. No anxiety or depression. No insomnia. Nursing notes and vitals signs are reviewed. Const: Vital Signs, click to edit/add: Vital Signs - 24 hr 01/04/25 10:57 Temperature 96.8 F L Pulse Rate [Pulse Oximeter] 91 Respiratory Rate 16 Blood Pressure [Ri ght Upper Arm] 107/72 Pulse Oximetry 99 Oxygen Delivery Me thod Room Air Course Vital Signs Vital signs: Initial Vital Signs Temperature 96.8 F L 01/04/25 10:57 Temperature Source Temporal Artery Scan 01/04/25 10:57 Pulse Rate 91 01/04/25 10:57 Respiratory Rate 16 01/04/25 10:57 Blood Pressure 107/72 01/04/25 10:57 Blood Pressure Mean 83 01/04/25 10:57 Blood Pressure Position Sitting 01/04/25 10:57 Pulse Oximetry 99 01/04/25 10:57 Oxygen Delivery Method Room Air 01/04/25 10:57 Vital Signs Temperature 96.8 F L 01/04/25 10:57 Pulse Rate 91 01/04/25 10:57 Respiratory Rate 16 01/04/25 10:57 Blood Pressure 107/72 01/04/25 10:57 Pulse Oximetry 99 01/04/25 10:57 Oxygen Delivery Method Room Air 01/04/25 10:57 Temperature 96.8 F L 01/04/25 10:57 Pulse Rate 91 01/04/25 10:57 Respiratory Rate 16 01/04/25 10:57 Blood Pressure 107/72 01/04/25 10:57 Pulse Oximetry 99 01/04/25 10:57 Oxygen Delivery Method Room Air 01/04/25 10:57 Medical Decision Making MDM Narrative Medical decision making narrative: This 49-year-old female comes in reporting altered sensation that she describes as tingling in the left lateral and anterior thigh. A bit of this also is occurring in her medial thigh on the left leg. Her exam is completely normal and has no other symptoms besides this. Her symptoms are suggestive of meralgia paresthetica. The medial thigh involvement would be more atypical. I did discuss lab and imaging options with the patient and these were declined for now. I explained that this usually is related to tight clothing or exercise activity or obesity. The patient states that her 40 lb dog who is a puppy and will be getting heavier has been sleeping on her and this area at night. She feels okay to return home. I did describe signs and symptoms that would indicate a need for return re-evaluation. Discharge Plan Discharge Clinical Impression: Meralgia paresthetica Patient Disposition: Home, Self-Care Condition: Stable Additional Instructions: Supportive cares as needed. Avoid tight clothing or pressure in the inguinal region. Activity as tolerated. Follow up with MD return if worsening symptoms occur. Prescriptions: No Action tirzepatide Mirena Follow Up/Referrals: Provider,Not a Local [Primary Care Provider, Family Practice] Stand Alone Forms: [employer] Info Instructions
== END 2025-01-04 12:25 | disposition home or self-care (01) ==
LOC: ED 12:09
PROVIDERS: Emergency Provider Emergency Medicine Emergency Medical Services
DX: G57.12 Meralgia paresthetica, left lower limb (principal)
CPT/HCPCS: 99283; 99284